=== PATIENT | female | born 1995 ===

== ENCOUNTER 2017-03-26 22:43 | Emergency (ER) | payer OTHER ==
--- NOTE | 2017-03-27 09:09 | ER ---
ADMIT: 03/26/2017 RM/LOC: ER [facility] MR#: [id number] [place], [place] [id number] JULIO CÉSAR ALMAGUER [address] [place] [address] CELL Emergency Room Report SEX: F AGE: 21 : 1995 DATE: 03/26/2017 HISTORY OF PRESENT ILLNESS: The patient is a 21-year-old female, who presents to the emergency room accompanied by her mom complaining of not feeling well. Apparently, mom says she almost passed out in front of her. She says she has not eaten anything since yesterday at six 6:00 a.m., 24 hours, no food which is her choice. She says she is not feeling hungry. Mom denies she vomits her food but she claims that she eats a lot, eats good, and has not been eating for the last 24 hours. She also mentions that child had issues as a very small child with her thyroid which vanished away because she did not get any medications for it. Both of her grandparents have diabetes and mother was concerned about her having diabetes. PHYSICAL EXAMINATION: VITAL SIGNS: Her blood pressure is 127/70, heart rate is 116, respirations 16, temp is 97.8, O2 sats 100%. GENERAL: She does not seem to be in any acute distress. Alert and oriented. Thin built female. NECK: Supple. No stiff neck. No carotid bruits. RESPIRATIONS: No distress. SKIN: Good color and turgor. EXTREMITIES: Well perfused. LABORATORY DATA: CBC within normal limits. Chemistry; CO2 18, TSH 0.110, blood sugar 75. Urine pending. CLINICAL IMPRESSION: Hyperthyroidism, although thyroid hormone and anorexia. DISPOSITION: She was given instructions to follow up with primary provider with Dr. Flaherty, make appointment as soon as possible and drink protein drinks even if she is not hungry, and small meals or snacks to keep her energy up. EVERETTE Crawford / Phani Fink MD / lauri JOB #: [id number] CC: Phani Fink MD, Attending Physician Leticia Flaherty MD, Family Physician
== END 2017-03-27 00:55 | disposition home or self-care (01) ==
LOC: ER 22:43
DX: E03.9 Hypothyroidism, unspecified (principal); R63.0 Anorexia

== ENCOUNTER → 2017-04-09 | Outpatient (CLI) | payer OTHER | END | disposition home or self-care (01) | LOC: RAD.S 04-04 09:55 | DX: E05.10 Thyrotoxicosis with toxic single thyroid nodule without thyrotoxic crisis or storm (principal) ==